=== PATIENT | female | born 1940 | race Caucasian/White ===

== ENCOUNTER → 2022-05-31 | Day surgery (SDC) | payer MEDICARE ==
[~2022-05-31] VITALS: Ht 157.5 cm; Wt 68.1 kg
[~2022-05-31] MED LIST: ASCORBIC ACID500 MG PO; ASPIRIN EC81 MG PO; COZAAR100 MG PO; FLINTSTONES CO1 EAC1 PO; NORVASC5 MG PO; TOPROL XL 25MG25 MG PO; VITAMIN D PO
[2022-05-31 08:26] LABS: HCT 38.8 % (37.0-47.0); HGB 13.6 g/dl (12.5-16.0); MCH 32.1 pg (25.0-31.0); MCHC 35.1 g/dL (32.0-36.0); MCV 91.5 fL (78.0-100.0); MPV 8.9 fL (6.0-9.5); RBC 4.24 M/uL (4.20-5.40); RDW 12.1 % (11.5-14.0); WBC 4.2 K/uL (4.0-10.5)
[2022-05-31 09:18] LABS: ALBUMIN 3.6 g/dL (3.4-5.0); BILIRUBIN - TOTAL 0.6 mg/dL (0.2-1.0); BUN/CREAT RATIO (CALC) 7.1 RATIO; CREATININE 0.7 mg/dL (0.51-0.95); GLOBULIN (CALCULATION) 3.5 g/dL; POTASSIUM 3.5 mmol/L (3.5-5.1); TOTAL PROTEIN 7.1 g/dL (6.4-8.2)
== END | disposition home or self-care (01) ==
LOC: FAS 07:54
PROVIDERS: Surgery
DX: K57.30 Diverticulosis of large intestine without perforation or abscess without bleeding (principal); R19.8 Other specified symptoms and signs involving the digestive system and abdomen; K58.0 Irritable bowel syndrome with diarrhea; I25.10 Atherosclerotic heart disease of native coronary artery without angina pectoris
CPT/HCPCS: 36415; 80053; J1610; J2250; J2704; J7120